=== PATIENT | male | born 1975 | race Two or more races ===

== ENCOUNTER 2022-11-02 22:20 | Emergency (ER) | payer OTHER ==
[~2022-11-02] VITALS: Ht 170.2 cm; Wt 72.6 kg
--- NOTE | 2022-11-02 23:25 | NUR ---
URINE COLLECTED AND SENT TO LAB
[2022-11-02] MEDS ORDERED: MORPHINE SULFATE INJ 2 MG/ML DISP.SYRIN IV ONE (23:30)
[2022-11-02] MEDS ORDERED: ONDANSETRON HCL/PF 4 MG/2 ML VIAL IVP ONE (23:30)
[2022-11-02] MEDS ORDERED: IV NS 0.9% 1,000 ML BAG IV ONE (23:30)
--- NOTE | 2022-11-02 23:37 | NUR ---
URINE SPECIMEN SENT TO LAB
--- NOTE | 2022-11-02 23:40 | NUR ---
18GA RAC ESTABLISHED
--- NOTE | 2022-11-02 23:44 | NUR ---
BLOOD WORK COLLECTED AND SENT TO LAB
[2022-11-02] MEDS ORDERED: MORPHINE SULFATE INJ 4 MG/ML DISP.SYRIN ONE (23:51)
[2022-11-02] MEDS ORDERED: ONDANSETRON HCL/PF 4 MG/2 ML VIAL ONE (23:51)
[2022-11-03 00:10] LABS: BASOPHILS % (AUTO) 0.3 % (0.0-2.0); EOSINOPHILS % (AUTO) 0.9 % (0.0-6.0); HEMATOCRIT 44 % (39-51); HEMOGLOBIN 14.6 g/dL (13.5-17.5); LYMPHOCYTES # (AUTO) 1.7 K/uL (0.8-4.8); LYMPHOCYTES % (AUTO) 25.1 % (20.0-44.0); MEAN CORPUSCULAR HGB CONC 34 g/dl (31.0-36.0); MEAN CORPUSCULAR VOLUME 93 fL (80-96); MONOCYTES # (AUTO) 0.6 K/uL (0.1-1.30); NEUTROPHILS # (AUTO) 4.5 K/uL (1.8-8.9); NEUTROPHILS % (AUTO) 64.7 % (43.0-81.0); PLATELET COUNT (AUTO) 241 K/uL (150-450); RED BLOOD CELL COUNT(AUTO) 4.67 MIL/uL (4.5-6.0); WHITE BLOOD COUNT (AUTO) 6.9 K/uL (4.3-11.0)
--- NOTE | 2022-11-03 00:15 | NUR ---
PT TO CT W/ TECH
[2022-11-03 00:18] LABS: BILIRUBIN,URINE NEGATIVE (NEGATIVE); COLOR,URINE YELLOW (YELLOW); LEUKOCYTE ESTERASE ,URINE NEGATIVE (NEGATIVE); NITRITE, URINE NEGATIVE (NEGATIVE); PROTEIN,URINE NEGATIVE (NEGATIVE); UGLUCOSE NEGATIVE (NEGATIVE); UROBILINOGEN,URINE 0.2 EU/dL (0.2)
--- NOTE | 2022-11-03 00:25 | NUR ---
PT RETURNED FROM CT
[2022-11-03 00:39] LABS: CALCIUM, SERUM 9.2 mg/dL (8.5-10.1)
[2022-11-03 00:46] LABS: ALBUMIN 3.9 g/dL (3.4-5.0); BILIRUBIN,DIRECT 0.1 mg/dL (0.0-0.2); BILIRUBIN,TOTAL 0.4 mg/dL (0.2-1.0); TOTAL PROTEIN, SERUM 7.7 g/dL (6.4-8.2)
[2022-11-03 02:39] VITALS: BP 124/79
== END 2022-11-03 02:40 | disposition home or self-care (01) ==
LOC: ER 22:22
DX: R10.31 Right lower quadrant pain (principal)
CPT/HCPCS: 99285; 74176; 85025; 80048; 83690; 80076; 81003; 36415; 85730; 96374; 96361; 96375; J2270; J2405; A4223; J7030; A6253